=== PATIENT | female | born 1970 | race Caucasian/White ===

== ENCOUNTER → 2021-04-03 15:49 | Outpatient (CLI) | payer OTHER, SELFPAY ==
--- NOTE | ~2021-04-03 | XR_ITS ---
[id number] 04/03/2021 16:07 Indication: Cervicalgia Procedure: 4 views of the cervical spine Comparison: No prior studies for comparison. Findings: Vertebral body heights are maintained. There is mild disc narrowing at C6-7. There is degen erative anterolisthesis at C7-T1 secondary to facet degenerative change. No prevertebral soft tissue abnormality. No foreign bodies. There is mild multilevel uncinate degenerative change. Impression: 1: Mild cervical spondylosis Reviewed, dictated and finalized at location A. ROOM SUPERVISOR Impression: 1: Mild cervical spondylosis
== END ==
PROVIDERS: PCP Nurse Practitioner Family; Visit Provider Nurse Practitioner Family
DX: M54.2 Cervicalgia (principal); M47.22 Other spondylosis with radiculopathy, cervical region
CPT/HCPCS: 72040

== ENCOUNTER 2022-06-27 17:48 | Emergency (ER) | payer BC, SELFPAY ==
[2022-06-27 17:54] VITALS: BP 132/56; PULSE 83; RESP 16; TEMP 36.9; O2SAT 100
--- NOTE | 2022-06-27 18:07 | ED.URI ---
HPI - URI/Sore Throat General Chief Complaint: Upper Respiratory Infection Stated Complaint: Body Aches,Congestion,Cough,Sore Throat Time Seen by Provider: 06/27/22 18:07 Source: patient, RN notes reviewed and old records reviewed Mode of arrival: ambulatory Limitations: no limitations History of Present Illness HPI Narrative: 51-year-old female who presents to [facility] with complaints of sore throat earlier in week, now also with complaints of body aches, sinus pressure, fatigue, and cough.Patient reports that she has been taking Mucinex and Advil for her symptoms. Patient reports that she is to have family in over the weekend and was concerned with her symptoms whether she was contagious with something. Patient reports that throat is mainly dry feeling at present, feels achy, no fevers known and cough is at times productive. Patient reports that she has been COVID vaccinated and also has had the flu shot this season. MD elicited complaint: cough, sore throat, nasal congestion and other (body aches, congestion) Onset (ago): day(s) (day 3 of symptoms) Pain scale (0-10): 2 Description of mucous: clear Able to tolerate fluids by mouth: Yes Treatments prior to arrival: ibuprofen and other (mucinex ) Related Data Home Medications Medication Instructions Recorded Confirmed No Home Medications 06/27/22 06/27/22 Allergies Allergy/AdvReac Type Severity Reaction Status Date / Time NKDA Allergy Unknown Unknown Uncoded 06/27/22 17:59 Review of Systems Review of Systems: CONSTITUTIONAL: Reports malaise, chills,no sweats, no fever. EYES: Denies visual changes, redness, or discharge. ENT: Reports rhinorrhea, congestion, sinus pain,no otalgia positive for sore throat. CARDIOVASCULAR: Denies chest pain, palpitations, or edema. RESPIRATORY: Reports productive cough.? Denies dyspnea. GASTROINTESTINAL: Denies abdominal pain, nausea, vomiting, diarrhea SKIN: Denies rash or itching. MUSCULOSKELETAL: Reports myalgia. NEUROLOGIC: Denies headache. All systems reviewed & are unremarkable except as noted in HPI and below PMFSH Past Medical History Medical History Breast calcification seen on mammogram Encounter for wellness examination Fatigue Herpes zoster Hyperlipidemia Neck pain Radicular pain Screening for diabetes mellitus Vaginal delivery Vitamin D deficiency Family History Family History Mother Family history of thyroid disease Family history of arthritis Father Family history of hypercholesterolemia Grandparent Family history of arthritis Social History Social History Smoking status: Never smoker Second hand tobacco smoke exposure: No Alcohol intake: current Drinks per week: 3 Substance use: never Substance use type: does not use Lack of Transportation: No Lack of Food: Never True Current Housing: I Have Housing Concerned About Future Housing: No Difficulty Paying Gas/Electric Bills: No Difficulty Paying for Meds: No Currently Unemployed: No Education: Bachelor's Degree Difficulty w/ Childcare or Family Care: No Living arrangements: with family Occupation/Education: occupation Gender identity (if verbalized by the patient): Female Sexual Orientation (if Verbalized by the Patient): Straight or Heterosexual Spiritual care concerns: No Agree to blood products: Yes Comments At time of signature, agree with nursing past medical, surgical, social and family history. There is no relevant family history pertinent to the presenting complaint Exam Narrative: GENERAL: Well-appearing, well-nourished, and in no acute distress. HEAD: Normocephalic EYES: PERRLA, conjunctivae clear ENT: Nares clear, turbinates edematous and erythematous, clear discharge. Mucous membranes moist. TM pearly cutler with
== END 2022-06-27 18:32 | disposition home or self-care (01) ==
PROVIDERS: Emergency Provider Registered Nurse; PCP Nurse Practitioner Family
DX: J06.9 Acute upper respiratory infection, unspecified (principal); E78.5 Hyperlipidemia, unspecified; Z20.822 Contact with and (suspected) exposure to COVID-19
CPT/HCPCS: 87081; 87426; 87804; 87880; 99213; C9803; G0463

== ENCOUNTER 2023-05-01 00:24 | Day surgery (SDC) | payer BC, SELFPAY ==
[2023-04-09 11:28] VITALS: BMI 19.6
--- NOTE | 2023-04-29 11:14 | SUR.PREOP ---
Patient called regarding upcoming procedure. Message left on pt's voicemail regarding appointment times.
[2023-05-01 09:51] VITALS: BP 117/66; PULSE 62; RESP 16; TEMP 36.3; O2SAT 100
[2023-05-01] MEDS: LACTATED RINGERS 1,000 ML 150 ML IV CONT (09:53)
--- NOTE | 2023-05-01 10:27 | WPDANESEPPF ---
Anes - Initial Pre Proc Eval Procedure: Operation Date: 05/01/23 11:00 Proposed Procedures p Screening Colonoscopy - Jose L Cox MD Date/Time: 05/01/23 10:27 Surgeon: Jose L Cox MD Pre Op Diagnosis: neoplasm screening Patient Data Age: 52 Gender: F Height: 1.7 m Weight: 54.2 kg Last Vital Signs Temp 97.3 F L 05/01/23 09:51 Pulse 62 05/01/23 09:51 Resp 16 05/01/23 09:51 BP 117/66 05/01/23 09:51 Pulse Ox 100 05/01/23 09:51 O2 Del Method Room Air 05/01/23 09:51 Allergies Allergy/AdvReac Type Severity Reaction Status Date / Time No Known Allergies Allergy Verified 05/01/23 09:49 Home Medications Medication Instructions Recorded Confirmed Type cholecalciferol (vitamin D3) 25 25 mcg PO DAILY 02/14/23 05/01/23 History mcg (1,000 unit) capsule multivitamin 1 tablet PO DAILY 02/14/23 05/01/23 History Patient hx anesthesia problems: none Family hx anesthesia problems: none Results Review: All pre-operative results and documents have been reviewed as part of the pre-operative evaluation. [facility] Past Medical History Medical History (Updated 02/14/23 @ 08:39 by Treva Hendricks NP) Breast calcification seen on mammogram Breast cancer screening Colon cancer screening Encounter for wellness examination Fatigue Herpes zoster Hyperlipidemia Neck pain Radicular pain Screening for diabetes mellitus Vaginal delivery Vitamin D deficiency Family History Family History Mother Family history of thyroid disease Family history of arthritis Father Family history of hypercholesterolemia Grandparent Family history of arthritis Social History Social History Smoking status: Never smoker Second hand tobacco smoke exposure: No Alcohol intake: current Drinks per week: 3 Alcohol use details: Occasionally Substance use: never Substance use type: does not use Lack of Transportation: No Lack of Food: Never True Current Housing: I Have Housing Concerned About Future Housing: No Difficulty Paying Gas/Electric Bills: No Difficulty Paying for Meds: No Currently Unemployed: No Education: Bachelor's Degree Difficulty w/ Childcare or Family Care: No Living arrangements: other Additional living arrangements comments: with sp Occupation/Education: occupation Gender identity (if verbalized by the patient): Female Sexual Orientation (if Verbalized by the Patient): Straight or Heterosexual Spiritual care concerns: No Agree to blood products: Yes Anes - Eval Final PreProcedure Day of Procedure 05/01/23 10:27 Patient weight: normal Heart: regular rate and rhythm Lungs: clear to auscultation Airway: Mallampati scale class II Neurological: alert and oriented Last oral intake: >/= 8 hours ASA classification: I Emergent: no Anesthetic plan: proceed Anesthesia type and monitoring: general GIVS and standard monitoring Results Review: All pre-operative results and documents have been reviewed as part of the pre-operative evaluation. Informed Consent: The patient's anesthetic plan and its attendant risks and benefits were discussed with the patient/family/POA. Questions were solicited and answers provided to the satisfaction of the patient/family/POA.
--- NOTE | 2023-05-01 11:16 | PM.HPGS ---
History of Present Illness History of Present Illness Consent: Risks, benefits, and alternatives have been discussed and questions answered. Patient agrees to proceed with procedure. Chief complaint: neoplasm screening Narrative: Arely Siu is a 52 year old female here for first screening colonoscopy Review of Systems Constitutional: Constitutional: Denies headache(s) and Denies weakness Eyes: Eyes: Denies blurry vision ENT: Reports Normal hearing present, Denies headache(s) and Denies neck pain Cardiovascular: Cardiovascular: Denies chest pain and Denies dyspnea Respiratory: Respiratory: Denies dyspnea Gastrointestinal: Gastrointestinal: Reports no additional gastrointestinal complaints Genitourinary: Genitourinary: Denies dysuria Musculoskeletal: Musculoskeletal: Denies neck pain Integumentary/Breasts: Skin/Breast: Denies dry skin Neurologic: Reports Normal hearing present, Denies headache(s) and Denies weakness Psychiatric: Psychiatric: Denies anxiety Endocrine: Endocrine: Denies change in body appearance Hematologic/Lymphatic: Hematologic/Lymphatic: Denies easy bleeding Allergic/Immunologic: Allergic/Immunologic: Denies urticaria PMFSH Past Medical History Medical History (Updated 02/14/23 @ 08:39 by Treva Hendricks NP) Breast calcification seen on mammogram Breast cancer screening Colon cancer screening Encounter for wellness examination Fatigue Herpes zoster Hyperlipidemia Neck pain Radicular pain Screening for diabetes mellitus Vaginal delivery Vitamin D deficiency Family History Family History Mother Family history of thyroid disease Family history of arthritis Father Family history of hypercholesterolemia Grandparent Family history of arthritis Social History Social History Smoking status: Never smoker Second hand tobacco smoke exposure: No Alcohol intake: current Drinks per week: 3 Alcohol use details: Occasionally Substance use: never Substance use type: does not use Lack of Transportation: No Lack of Food: Never True Current Housing: I Have Housing Concerned About Future Housing: No Difficulty Paying Gas/Electric Bills: No Difficulty Paying for Meds: No Currently Unemployed: No Education: Bachelor's Degree Difficulty w/ Childcare or Family Care: No Living arrangements: other Additional living arrangements comments: with sp Occupation/Education: occupation Gender identity (if verbalized by the patient): Female Sexual Orientation (if Verbalized by the Patient): Straight or Heterosexual Spiritual care concerns: No Agree to blood products: Yes Meds Home Medications and Allergies Home Medications Medication Instructions Recorded Confirmed Type cholecalciferol (vitamin D3) 25 25 mcg PO DAILY 02/14/23 05/01/23 History mcg (1,000 unit) capsule multivitamin 1 tablet PO DAILY 02/14/23 05/01/23 History Allergies Allergy/AdvReac Type Severity Reaction Status Date / Time No Known Allergies Allergy Verified 05/01/23 09:49 Vital Signs Vital Signs - 24 hr 05/01/23 09:51 Temperature 97.3 F L Pulse Rate 62 Respiratory Rate 16 Blood Pressure 117/66 Pulse Oximetry 100 Oxygen Delivery Room Air Exam Const: General: comfortable and no acute distress HENMT: Face/Nose/Sinus: Normal nares present Eyes: General: appearance normal, both eyes and all related structures Neck: Neck: no JVD Resp: Auscultation: clear to auscultation bilaterally Cardio: Rate: regular rate Rhythm: regular rhythm GI: Inspection: non-distended GI Palp: Yes Soft to palpation Skin: General skin exam: normal color Neuro: General: gait normal Speech: normal speech Extrem: General: normal to inspection Psych: Mental Status: mental status grossly normal Assessment and Plan Assessment and plan (1) Colon ca
[2023-05-01 11:38] VITALS: BP 99/54; PULSE 64; RESP 17; O2SAT 100
[2023-05-01 11:48] VITALS: BP 105/65; PULSE 61; RESP 18; O2SAT 100
[2023-05-01 11:58] VITALS: BP 115/74; PULSE 63; RESP 20; O2SAT 100
== END 2023-05-01 12:04 | disposition home or self-care (01) ==
PROVIDERS: PCP Nurse Practitioner Family; Visit Provider Internal Medicine Gastroenterology
PROC: 0DJD8ZZ Inspection of Lower Intestinal Tract, Via Natural or Artificial Opening Endoscopic (ICD-10-PCS; CPT 45378; principal; 2023-05-01 11:00)
DX: Z12.11 Encounter for screening for malignant neoplasm of colon (principal); K64.8 Other hemorrhoids; E55.9 Vitamin D deficiency, unspecified
CPT/HCPCS: 45378; J2704; J7120